=== PATIENT | male | born 1965 | race American Indian/Alaskan Native ===

== ENCOUNTER 2016-12-14 07:37 | Emergency (ER) | payer MEDICARE ==
[2016-12-14 08:15] LABS: Basophils % (Auto) 0.7 % (0.0-1.8); Eosinophils % (Auto) 4.1 % (0.0-4.3); Hematocrit 35.2 % (35.5-45.6); Hemoglobin 11.5 gm/dl (11.8-15.2); Mean Corpuscular HGB Conc 33 % (32-34); Mean Corpuscular Hemoglobin 32 pg (28-32); Mean Corpuscular Volume 97 fl (84-94); Platelet Count 303 K/mm3 (140-440); Red Blood Count 3.63 M/mm3 (3.65-5.03); Red Cell Distribution Width 15.2 % (13.2-15.2); White Blood Count 9.2 K/mm3 (4.5-11.0)
[2016-12-14 08:30] LABS: Anion Gap 19 mmol/L; BUN/Creatinine Ratio 12.85; Blood Urea Nitrogen 9 mg/dL (9-20); Calcium 9.1 mg/dL (8.4-10.2); Carbon Dioxide 22 mmol/L (22-30); Chloride 99.2 mmol/L (98-107); Glucose 341 mg/dL (75-100); Potassium 3.9 mmol/L (3.6-5.0); Sodium 136 mmol/L (137-145)
[2016-12-14 09:08] LABS: Bilirubin,Urine NEG (Negative); Blood,Urine SM (Negative); Ketones,Urine NEG (Negative); Leukocyte Esterase,Urine NEG (Negative); Mucus,Urine FEW /HPF; Nitrite,Urine NEG (Negative); Urobilinogen,Urine < 2.0 mg/dL (<2.0)
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
[2016-12-14 11:35] LABS: Alanine Aminotransferase 32 units/L (7-56); Albumin 3.4 g/dL (3.9-5); Albumin/Globulin Ratio 0.9 %; Alkaline Phosphatase 164 units/L (35-129); Bilirubin,Direct < 0.2 mg/dL (0-0.2)
[2016-12-14] MEDS ORDERED: NACL ONE (12:10)
[2016-12-14] MEDS ORDERED: ZOFRAN ONE (12:51)
[2016-12-14] MEDS ORDERED: ZOFRAN IV ONE (12:59)
--- NOTE | 2016-12-14 13:38 | Cat Scan Report ---
CT CHEST WITH CONTRAST: 12/14/16 11:58:00 CLINICAL: Shortness of breath. Elevated d-dimer. TECHNIQUE: PE protocol with volumetric acquisition and 1.25 mm scan reconstructions after the uneventful intravenous injection of 100 cc Omnipaque 350. Consent was obtained prior to the administration of contrast. FINDINGS: Less than optimal opacification of the pulmonary arteries and no pulmonary artery thrombus identified. There is considerable streak artifact from the contrast in the right heart, SVC and left brachiocephalic vein. Normal heart and aorta. Normal lungs and mediastinum. Normal thyroid, trachea and esophagus. The upper abdomen is unremarkable. The bones and soft tissues are normal. IMPRESSION: Normal study. No pulmonary embolus.
[2016-12-14 13:48] VITALS: BP 149/86
--- NOTE | 2016-12-15 09:58 | XRay Report ---
ABDOMEN, 2 views: History: Abdominal pain. There is no evidence of free air beneath the diaphragms. The gas pattern within the abdomen is unremarkable. There is no evidence of bowel dilatation, significant air-fluid levels, or pathologic calcifications. Organ shadows are unremarkable. IMPRESSION: No acute abdominal process appreciated.
--- NOTE | 2016-12-15 09:58 | XRay Report ---
ROUTINE CHEST, TWO VIEWS: HISTORY: Cough, shortness of breath. Previous cardiac surgery changes are noted. Heart size is within normal limits. Pulmonary vascularity is borderline. The lungs are clear. No evidence for pneumonia, CHF or pneumothorax. IMPRESSION: No acute cardiopulmonary process identified.
--- NOTE | 2016-12-16 07:51 | Vascular Lab Report ---
Right Lower Extremity Venous Duplex Study: Reason for Exam: Swelling of the right lower extremity. Comments on the Right: All veins visualized are freely compressible without evidence of internal echogenicity. Flow is spontaneous and phasic throughout. No evidence of acute or chronic thrombus is seen in any of the vessels visualized. Prominent lymph node and soft tissue changes consistent with edema noted Comments on the Left: A limited duplex study was done of the proximal veins of the left lower extremity. All veins visualized are freely compressible without evidence of internal echogenicity. Flow is spontaneous and phasic throughout. No evidence of acute or chronic thrombus is seen in any of the vessels visualized. Impression: No evidence of acute or chronic deep venous thrombosis in the right lower extremity.
== END 2016-12-14 13:45 | disposition home or self-care (01) ==
LOC: ED 07:37
DX: S39.011A Strain of muscle, fascia and tendon of abdomen, initial encounter (principal); R22.41 Localized swelling, mass and lump, right lower limb; R05 Cough; I10 Essential (primary) hypertension; E11.9 Type 2 diabetes mellitus without complications; E78.00 Pure hypercholesterolemia, unspecified; I25.10 Atherosclerotic heart disease of native coronary artery without angina pectoris; F12.90 Cannabis use, unspecified, uncomplicated; Z87.891 Personal history of nicotine dependence; Z88.0 Allergy status to penicillin; X58.XXXA Exposure to other specified factors, initial encounter; Y93.9 Activity, unspecified; Y99.9 Unspecified external cause status; Y92.9 Unspecified place or not applicable
CPT/HCPCS: 36415; 71020; 71275; 74020; 80048; 80074; 81001; 82962; 83690; 83880; 84484; 85025; 85379; 93005; 93010; 93971; 96374; 96375; 99285; J2405; Q9967; J1815

== ENCOUNTER 2018-08-19 23:22 | Inpatient (IN) | payer MEDICARE ==
[2018-08-19] MEDS ORDERED: ASPIRIN PO ONE (23:35)
[2018-08-19 23:56] LABS: Basophils # (Auto) 0.2 K/mm3 (0.0-0.1); Basophils % (Auto) 1.8 % (0.0-1.8); Eosinophils # (Auto) 0.5 K/mm3 (0.0-0.4); Eosinophils % (Auto) 4.9 % (0.0-4.3); Hematocrit 37.1 % (35.5-45.6); Hemoglobin 12.4 gm/dl (11.8-15.2); Lymphocytes # (Auto) 2.7 K/mm3 (1.2-5.4); Lymphocytes % (Auto) 26.8 % (13.4-35.0); Mean Corpuscular HGB Conc 33 % (32-34); Mean Corpuscular Volume 95 fl (84-94); Monocytes % (Auto) 9.6 % (0.0-7.3); Platelet Count 508 K/mm3 (140-440); Red Blood Count 3.92 M/mm3 (3.65-5.03); Red Cell Distribution Width 13.8 % (13.2-15.2)
[2018-08-20] MEDS ORDERED: ZOFRAN IV ONE (00:06)
[2018-08-20] MEDS ORDERED: MORPHINE IV ONE (00:06)
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
[2018-08-20 00:17] LABS: BUN/Creatinine Ratio 11; Blood Urea Nitrogen 9 mg/dL (9-20); Calcium 9.8 mg/dL (8.4-10.2); Hemolysis Index 7
[2018-08-20] MEDS ORDERED: HumuLIN R IV ONE (00:28)
--- NOTE | 2018-08-20 00:31 | XRay Report ---
FINAL REPORT EXAM: XR CHEST 1V AP HISTORY: chest pain TECHNIQUE: A portable upright view the chest was obtained. FINDINGS: There are sternotomy sutures. The heart size is normal. The lungs are not congested. There are no loc alized infiltrates or effusions. There is a nipple shadow overlying the left lung base. Pleural fluid is not seen. The skeletal structures are well-maintained. IMPRESSION: Previous bypass surgery changes. No acute process in the chest.
[2018-08-20] MEDS ORDERED: NITROSTAT SL PRN (01:54)
[2018-08-20] MEDS ORDERED: ZOFRAN IV PRN (01:57)
[2018-08-20] MEDS ORDERED: TYLENOL PO PRN (01:57)
[2018-08-20] MEDS: NITRO-BID 2% TP SCH ×5 (02:18→17:46)
[2018-08-20] MEDS: MORPHINE IV PRN ×3 (02:19→15:06)
[2018-08-20] MEDS ORDERED: D50W (25GM) Syringe IV PRN (03:25)
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
[2018-08-20 07:29] LABS: Creatine Kinase MB 1.3 ng/mL (0.0-4.0)
[2018-08-20] MEDS: HumuLIN R SUB-Q SCH ×4 (08:00→22:36)
[2018-08-20] MEDS ORDERED: HumuLIN R ONE ×3 (08:00→14:29)
[2018-08-20] MEDS ORDERED: LEXISCAN IV ONE ×2 (08:59→09:00)
[2018-08-20] MEDS ORDERED: ASPIRIN PO SCH (10:00)
[2018-08-20] MEDS ORDERED: ASPIRIN ONE (10:47)
[2018-08-20] MEDS ORDERED: NITRO-BID 2% TP ONE (10:47)
[2018-08-20] MEDS ORDERED: HEPARIN ONE (10:48)
[2018-08-20] MEDS ORDERED: MORPHINE ONE ×2 (10:48→14:30)
[2018-08-20] MEDS: HEPARIN SUB-Q SCH ×2 (11:05→22:36)
[2018-08-20 13:15] LABS: Creatine Kinase MB 1.5 ng/mL (0.0-4.0)
--- NOTE | 2018-08-20 16:31 | Event Note ---
Date: 08/20/18 52-year-old male patient with significant history of hypertension coronary artery disease diabetes mellitus dyslipidemia was admitted through emergency room with chest pain Patient is being appropriately treated, underwent stress test awaiting report Medical records reviewed, agree with the current management Appropriate home medications resumed
[2018-08-20] MEDS: GLUCOPHAGE PO SCH (17:45)
[2018-08-20] MEDS ORDERED: NON-FORMULARY (Metformin Hcl [Metformin Hcl] 1,000 MG) PO SCH (22:00)
--- NOTE | 2018-08-20 22:05 | Treadmill Report ---
THALLIUM STRESS TEST LEFT VENTRICLE: Left ventricle appears moderately dilated. Perfusion study demonstrates homogeneous uptake of the tracer in all segments. A small fixed basal inferior defect appears secondary to diaphragmatic attenuation artifact. Gated analysis demonstrates moderately severe left ventricular systolic dysfunction with ejection fraction calculated at 36%. CONCLUSION: Evidence of a dilated cardiomyopathy, with moderately severe left ventricular systolic dysfunction, ejection fraction 36%. The perfusion study demonstrates homogeneous uptake of the tracer, suggesting a nonischemic cardiomyopathy. Clinical correlation is recommended. [facility]# [id number] CA/NTS
[2018-08-20] MEDS: GLUCOTROL PO SCH (22:36)
[2018-08-20] MEDS: LOPRESSOR PO SCH (22:36)
[2018-08-21] MEDS: NITRO-BID 2% TP SCH ×4 (05:29→18:48)
[2018-08-21] MEDS: HumuLIN R SUB-Q SCH ×4 (08:30→21:39)
[2018-08-21] MEDS: GLUCOPHAGE PO SCH ×2 (09:00→18:00)
[2018-08-21] MEDS: MORPHINE IV PRN ×2 (09:27→18:40)
[2018-08-21] MEDS: HALFPRIN EC PO SCH (09:31)
[2018-08-21] MEDS: NORVASC PO SCH (09:32)
[2018-08-21] MEDS: LASIX IV SCH (09:36)
[2018-08-21] MEDS: HEPARIN SUB-Q SCH ×2 (09:36→21:39)
[2018-08-21] MEDS: GLUCOTROL PO SCH ×2 (09:37→21:38)
[2018-08-21] MEDS: HCTZ PO SCH (09:37)
[2018-08-21] MEDS: COZAAR PO SCH (09:42)
[2018-08-21] MEDS: LOPRESSOR PO SCH ×2 (09:51→21:38)
[2018-08-21] MEDS ORDERED: NON-FORMULARY (Losartan/Hydrochlorothiazide [Losartan-Hctz 100-25 Mg Tab] 1 TAB) PO SCH (10:00)
[2018-08-21] MEDS ORDERED: AFLURIA QUAD 2018-2019 SYRINGE IM ONE (12:00)
--- NOTE | 2018-08-21 14:24 | Progress Note ---
Assessment and Plan Assessment and plan: --Atypical chest pain; a stress test negative Continue current cardiac medications --Persistent chest pain; continue current cardiac medications Consult cardiology --History of coronary artery disease; continue current management --Systolic congestive heart failure; EF 40-45% Continue anti-failure medications --Type 2 diabetes mellitus; Accu-Chek sliding scale coverage and ADA diet and insulin as needed, patient is on oral hypoglycemics --Dyslipidemia; stable on statin DVT prophylaxis; heparin Closely monitor the patient and adjust the management as needed Follow-up cardiology evaluation and recommendations History Interval history: Patient was admitted with chest pain, underwent stress test which was negative for reversible ischemia Echocardiogram 40-45% ejection fraction Patient complains of persistent intermittent chest pain Vital signs reviewed Hospitalist Physical - Constitutional Vitals: Temp Pulse Resp BP Pulse Ox 98 F 64 18 150/76 100 08/21/18 12:27 08/21/18 12:20 08/21/18 12:20 08/21/18 12:20 08/21/18 12:20 General appearance: Present: no acute distress, well-nourished - EENT Eyes: Present: PERRL, EOM intact - Neck Neck: Present: supple, normal ROM - Respiratory Respiratory effort: normal Respiratory: bilateral: diminished, negative: rales, rhonchi, wheezing - Cardiovascular Rhythm: regular Heart Sounds: Present: S1 & S2 - Extremities Extremities: no ischemia, No edema - Abdominal General gastrointestinal: soft, non-tender, non-distended, normal bowel sounds - Integumentary Integumentary: Present: clear, warm - Psychiatric Psychiatric: appropriate mood/affect, cooperative - Neurologic Neurologic: CNII-XII intact, moves all extremities Results - Labs CBC & Chem 7: 08/19/18 23:40 08/19/18 23:40 Labs: Laboratory Last Values WBC 10.0 K/mm3 (4.5-11.0) 08/19/18 23:40 RBC 3.92 M/mm3 (3.65-5.03) 08/19/18 23:40 Hgb 12.4 gm/dl (11.8-15.2) 08/19/18 23:40 Hct 37.1 % (35.5-45.6) 08/19/18 23:40 MCV 95 fl (84-94) H 08/19/18 23:40 MCH 32 pg (28-32) 08/19/18 23:40 MCHC 33 % (32-34) 08/19/18 23:40 RDW 13.8 % (13.2-15.2) 08/19/18 23:40 Plt Count 508 K/mm3 (140-440) H 08/19/18 23:40 Lymph % (Auto) 26.8 % (13.4-35.0) 08/19/18 23:40 [place] % (Auto) 9.6 % (0.0-7.3) H 08/19/18 23:40 Eos % (Auto) 4.9 % (0.0-4.3) H 08/19/18 23:40 Baso % (Auto) 1.8 % (0.0-1.8) 08/19/18 23:40 Lymph # 2.7 K/mm3 (1.2-5.4) 08/19/18 23:40 [place] # 1.0 K/mm3 (0.0-0.8) H 08/19/18 23:40 Eos # 0.5 K/mm3 (0.0-0.4) H 08/19/18 23:40 Baso # 0.2 K/mm3 (0.0-0.1) H 08/19/18 23:40 Seg Neutrophils % 56.9 % (40.0-70.0) 08/19/18 23:40 Seg Neutrophils # 5.7 K/mm3 (1.8-7.7) 08/19/18 23:40 Sodium 137 mmol/L (137-145) 08/19/18 23:40 Potassium 3.8 mmol/L (3.6-5.0) 08/19/18 23:40 Chloride 100.1 mmol/L (98-107) 08/19/18 23:40 Carbon Dioxide 25 mmol/L (22-30) 08/19/18 23:40 Anion Gap 16 mmol/L 08/19/18 23:40 BUN 9 mg/dL (9-20) 08/19/18 23:40 Creatinine 0.8 mg/dL (0.8-1.5) 08/19/18 23:40 Estimated GFR > 60 ml/min 08/19/18 23:40 BUN/Creatinine Ratio 11 % 08/19/18 23:40 Glucose 280 mg/dL (75-100) H 08/19/18 23:40 POC Glucose 193 (70-105) H 08/21/18 11:43 Calcium 9.8 mg/dL (8.4-10.2) 08/19/18 23:40 Total Creatine Kinase 72 units/L (55-170) 08/20/18 12:18 CK-MB (CK-2) 1.5 ng/mL (0.0-4.0) 08/20/18 12:18 CK-MB (CK-2) Rel Index 2.0 (0-4) 08/20/18 12:18 Troponin T < 0.010 ng/mL (0.00-0.029) 08/20/18 12:18
[2018-08-22] MEDS: NITRO-BID 2% TP SCH ×4 (05:24→17:39)
[2018-08-22] MEDS: HumuLIN R SUB-Q SCH ×4 (08:51→21:41)
[2018-08-22] MEDS: GLUCOPHAGE PO SCH ×2 (08:56→17:13)
--- NOTE | 2018-08-22 10:31 | Consultation ---
History of Present Illness Consult date: 08/22/18 Consult reason: chest pain History of present illness: 52 year old male with past medical history of CAD s/p CABG 2011 at [place], HTN, HLP, DM presenting with chest pain that originates over the LUQ of the abdomen and radiate all the way up to the mandible and left shoulder. Pain is exertional and relieved with rest. Pain is similar to angina he experienced prior to his bypass surgery. Troponin negative, MPI here showed no ischemia. Patient did have another episode of chest pain last night. Past History Past Medical History: CAD, diabetes, hypertension, hyperlipidemia Past Surgical History: CABG Social history: no significant social history, other (former smoker) Family history: CAD, hypertension Medications and Allergies Allergies Allergy/AdvReac Type Severity Reaction Status Date / Time Penicillins Allergy Unknown Verified 12/14/16 07:46 Home Medications Medication Instructions Recorded Confirmed Last Taken Type Aspirin [Aspir-Low] 81 mg PO DAILY 08/20/18 08/20/18 08/19/18 History AtorvaSTATin [Lipitor] 40 mg PO DAILY 08/20/18 08/20/18 Unknown History Cholecalciferol (Vitamin D3) 1,000 unit PO DAILY 08/20/18 08/20/18 Unknown History [Vitamin D3] Losartan/Hydrochlorothiazide 1 tab PO DAILY 08/20/18 08/20/18 Unknown History [Losartan-Hctz 100-25 mg Tab] Metformin HCl 1,000 mg PO BID 08/20/18 08/20/18 08/19/18 History Metoprolol Tartrate 100 mg PO BID 08/20/18 08/20/18 Unknown History Omeprazole 20 mg PO BID 08/20/18 08/20/18 Unknown History amLODIPine [Norvasc] 10 mg PO DAILY 08/20/18 08/20/18 Unknown History glipiZIDE [Glipizide] 10 mg PO BID 08/20/18 08/20/18 08/19/18 History Active Meds: Active Medications Acetaminophen (Tylenol) 650 mg PO Q4H PRN PRN Reason: Headache Amlodipine Besylate (Norvasc) 10 mg PO DAILY [facility] Last Admin: 08/21/18 09:32 Dose: 10 mg Documented by: Aspirin (Halfprin Ec) 81 mg PO DAILY [facility] Last Admin: 08/21/18 09:31 Dose: 81 mg Documented by: Atorvastatin Calcium (Lipitor) 40 mg PO HS [facility] Last Admin: 08/21/18 21:40 Dose: 40 mg Documented by: Dextrose (D50w (25gm) Syringe) 50 ml IV PRN PRN PRN Reason: Hypoglycemia Furosemide (Lasix) 40 mg IV QDAY [facility] Last Admin: 08/21/18 09:36 Dose: 40 mg Documented by: Glipizide (Glucotrol) 10 mg PO BID [facility] Last Admin: 08/21/18 21:38 Dose: 10 mg Documented by: Heparin Sodium (Porcine) (Heparin) 5,000 unit SUB-Q Q12HR [facility] Last Admin: 08/21/18 21:39 Dose: 5,000 unit Documented by: Hydrochlorothiazide (Hctz) 25 mg PO QDAY [facility] Last Admin: 08/21/18 09:37 Dose: 25 mg Documented by: Insulin Human Regular (Humulin R) 0 units SUB-Q ACHS [facility]; Protocol Last Admin: 08/22/18 08:51 Dose: 1 units Documented by: Losartan Potassium (Cozaar) 100 mg PO QDAY [facility] Last Admin: 08/21/18 09:42 Dose: 100 mg Documented by: Metformin HCl (Glucophage) 1,000 mg PO BIDDIAB [facility] Last Admin: 08/22/18 08:56 Dose: 1,000 mg Documented by: Metoprolol Tartrate (Lopressor) 100 mg PO BID [facility] Last Admin: 08/21/18 21:38 Dose: 100 mg Documented by: Morphine Sulfate (Morphine) 2 mg IV Q5MIN PRN PRN Reason: Chest Pain unrelieved by NTG Last Admin: 08/21/18 18:40 Dose: 2 mg Documented by: Nitroglycerin (Nitrostat) 0.4 mg SL .Q5MIN PRN PRN Reason: Chest Pain Nitroglycerin (Nitro-Bid 2%) 1 inch TP QIDNTG [facility]; Protocol Last Admin: 08/22/18 05:24 Dose: 1 inch Documented by: Ondansetron HCl (Zofran) 4 mg IV Q8H PRN PRN Reason: Nausea And Vomiting Review of Systems All systems: negative Physical Examination Vital Signs Temp Pulse Resp BP Pulse Ox 98.3 F 68 16 137/68 100 08/19/18 23:40 08/19/18 23:40 08/19/18 23:40 08/19/18 23:40 08/19/18 23:40 General appearance: no acute distress HEENT: Positive: PERRL Neck: Positive: neck supple Cardiac: Positive: Reg Rate and Rhythm Lungs: Positive: Normal Exam Abdomen: Positive: Soft Extremities: Absent: edema Results 08/19/18 23:40 08/19/18 23:40 - EKG Interpretation EKG: sinus rhythm EKG interpretations - Telemetry EKG Rhythm: Sinus Rhythm Assessment and Plan Unstable angina [facility]G to RI and sequential SVG to RCA and PDA EF 2012 was 55% Type II DM Hyperlipidemia Systemic Hypertension MPI this admission - no ischemia, LVEF 36% Echo this admission - LVEF 40-45%, RV dysfunction Recommendations: CT abdomen and pelvis to rule out abdominal etiology of LUQ pain Coronary angio on friday for unstable angina type symptoms and decrease in LVEF from previous outpatient study
[2018-08-22] MEDS: GLUCOTROL PO SCH ×2 (10:55→21:40)
[2018-08-22] MEDS: HALFPRIN EC PO SCH (10:55)
[2018-08-22] MEDS: LASIX IV SCH (10:55)
[2018-08-22] MEDS: NORVASC PO SCH (10:55)
[2018-08-22] MEDS: HCTZ PO SCH (10:55)
[2018-08-22] MEDS: COZAAR PO SCH (10:55)
[2018-08-22] MEDS: HEPARIN SUB-Q SCH ×2 (10:56→21:40)
[2018-08-22 11:27] LABS: INR 0.89 (0.87-1.13)
--- NOTE | 2018-08-22 11:56 | Cat Scan Report ---
FINAL REPORT EXAM: CT ABDOMEN PELVIS WO CON HISTORY: LUQ abdominal pain COMPARISON: None. TECHNIQUE: Multiple contiguous axial images were obtained from the lung bases to the pubic symphysis without administration of IV contrast. Reformatted sagittal and coronal images were available for re view. FINDINGS: Lung bases: Normal. Visualized heart and mediastinum: Normal heart size. Mild coronary artery calcifications. Liver: Normal noncontrast appearance. Spleen: Normal noncontrast appearance. Pancreas: Normal noncontrast appearance. Gallbladder and Biliary Tree: No calcified gallstones. No biliary ductal dilatation. Adrenal glands: Normal. Kidneys: Normal. No renal or ureteral calcifications. No hydronephrosis. Bladder: Normal. Pelvic organs: Scattered calcifications of the prostate gland. Bowel: No focal wall thickening. No evidence of obstruction. Normal appendix without surrounding infl ammatory change. Peritoneum: No significant mesenteric adenopathy. No free air or free fluid. Vasculature: Abdominal aorta is normal in caliber without evidence of aneurysm. Scattered atheroscler otic calcifications. Bones and soft tissues: No suspicious osseous lesions. No acute fracture or dislocation. Soft tissues are normal. IMPRESSION: No acute intra-abdominal pathology. Mild coronary artery calcifications.
[2018-08-22] MEDS: MORPHINE IV PRN (17:13)
[2018-08-22] MEDS: LOPRESSOR PO SCH ×2 (17:37→21:40)
--- NOTE | 2018-08-22 18:32 | Progress Note ---
Assessment and Plan Assessment and plan: --Persistent chest pain; stress test during this admission is negative However patient has intermittent chest pain, cardiology evaluation noted and appreciated Possible heart cath on Friday --Atypical chest pain; present on admission, stress test negative Continue current cardiac medications --History of coronary artery disease s/p CABG; continue current cardiac medications , cardiology following --Systolic congestive heart failure; EF 40-45% Continue anti-failure medications --Type 2 diabetes mellitus; Accu-Chek sliding scale coverage and ADA diet and insulin as needed, patient is on oral hypoglycemics --Dyslipidemia; stable on statin DVT prophylaxis; heparin Closely monitor the patient and adjust the management as needed Follow-up cardiology evaluation and recommendations History Interval history: Patient seen and exam and medical records reviewed Patient feels better now new complaints Vital signs noted Hospitalist Physical - Constitutional Vitals: Temp Pulse Resp BP Pulse Ox 98.3 F 82 20 144/86 100 08/22/18 17:27 08/22/18 17:39 08/22/18 17:27 08/22/18 17:39 08/22/18 17:27 General appearance: Present: no acute distress, well-nourished - EENT Eyes: Present: PERRL, EOM intact - Neck Neck: Present: supple, normal ROM - Respiratory Respiratory effort: normal Respiratory: bilateral: diminished, negative: rales, rhonchi, wheezing - Cardiovascular Rhythm: regular Heart Sounds: Present: S1 & S2 - Extremities Extremities: no ischemia, No edema - Abdominal General gastrointestinal: soft, non-tender, non-distended, normal bowel sounds - Integumentary Integumentary: Present: clear, warm - Psychiatric Psychiatric: appropriate mood/affect, cooperative - Neurologic Neurologic: CNII-XII intact, moves all extremities Results - Labs CBC & Chem 7: 08/19/18 23:40 08/19/18 23:40 Labs: Laboratory Last Values WBC 10.0 K/mm3 (4.5-11.0) 08/19/18 23:40 RBC 3.92 M/mm3 (3.65-5.03) 08/19/18 23:40 Hgb 12.4 gm/dl (11.8-15.2) 08/19/18 23:40 Hct 37.1 % (35.5-45.6) 08/19/18 23:40 MCV 95 fl (84-94) H 08/19/18 23:40 MCH 32 pg (28-32) 08/19/18 23:40 MCHC 33 % (32-34) 08/19/18 23:40 RDW 13.8 % (13.2-15.2) 08/19/18 23:40 Plt Count 508 K/mm3 (140-440) H 08/19/18 23:40 Lymph % (Auto) 26.8 % (13.4-35.0) 08/19/18 23:40 [place] % (Auto) 9.6 % (0.0-7.3) H 08/19/18 23:40 Eos % (Auto) 4.9 % (0.0-4.3) H 08/19/18 23:40 Baso % (Auto) 1.8 % (0.0-1.8) 08/19/18 23:40 Lymph # 2.7 K/mm3 (1.2-5.4) 08/19/18 23:40 [place] # 1.0 K/mm3 (0.0-0.8) H 08/19/18 23:40 Eos # 0.5 K/mm3 (0.0-0.4) H 08/19/18 23:40 Baso # 0.2 K/mm3 (0.0-0.1) H 08/19/18 23:40 Seg Neutrophils % 56.9 % (40.0-70.0) 08/19/18 23:40 Seg Neutrophils # 5.7 K/mm3 (1.8-7.7) 08/19/18 23:40 PT 12.6 Sec. (12.2-14.9) 08/22/18 10:46 INR 0.89 (0.87-1.13) 08/22/18 10:46 Sodium 137 mmol/L (137-145) 08/19/18 23:40 Potassium 3.8 mmol/L (3.6-5.0) 08/19/18 23:40 Chloride 100.1 mmol/L (98-107) 08/19/18 23:40 Carbon Dioxide 25 mmol/L (22-30) 08/19/18 23:40 Anion Gap 16 mmol/L 08/19/18 23:40 BUN 9 mg/dL (9-20) 08/19/18 23:40 Creatinine 0.8 mg/dL (0.8-1.5) 08/19/18 23:40 Estimated GFR > 60 ml/min 08/19/18 23:40 BUN/Creatinine Ratio 11 % 08/19/18 23:40 Glucose 280 mg/dL (75-100) H 08/19/18 23:40 POC Glucose 195 (70-105) H 08/22/18 17:09 Calcium 9.8 mg/dL (8.4-10.2) 08/19/18 23:40 Total Creatine Kinase 72 units/L (55-170) 08/20/18 12:18 CK-MB (CK-2) 1.5 ng/mL (0.0-4.0) 08/20/18 12:18 CK-MB (CK-2) Rel Index 2.0 (0-4) 08/20/18 12:18 Troponin T < 0.010 ng/mL (0.00-0.029) 08/20/18 12:18
[2018-08-23] MEDS: NITRO-BID 2% TP SCH ×4 (05:06→17:26)
[2018-08-23] MEDS: HumuLIN R SUB-Q SCH ×4 (08:18→22:26)
[2018-08-23] MEDS: GLUCOPHAGE PO SCH ×2 (08:21→17:23)
--- NOTE | 2018-08-23 09:17 | Progress Note ---
Assessment and Plan Chest Pain CT abdomen and pelvis - [facility] Coronary artery disease s/p CABG 01/2011 at [place] to LAD, SVG to RI and sequential SVG to RCA and PDA EF 2011 was 55% Type II DM Hyperlipidemia Systemic Hypertension MPI this admission - no ischemia, LVEF 36% Echo this admission - LVEF 40-45%, RV dysfunction Recommendations: Coronary angio on friday for chest pain and decrease in LVEF from previous outpatient study Subjective Date of service: 08/23/18 Principal diagnosis: Chest Pain Interval history: No cardiac events overnight Objective Vital Signs Temp Pulse Resp BP BP Pulse Ox 08/23/18 07:56 98.8 F 73 18 135/82 97 08/23/18 05:04 67 18 141/78 98 08/23/18 01:00 58 L 08/22/18 23:50 98.5 F 64 20 147/86 98 08/22/18 22:00 19 08/22/18 20:17 98.1 F 83 20 145/84 96 08/22/18 17:39 82 144/86 08/22/18 17:27 98.3 F 82 20 144/86 100 - Physical Examination HEENT: Positive: PERRL Neck: Positive: neck supple Cardiac: Positive: Reg Rate and Rhythm Lungs: Positive: Normal Exam Abdomen: Positive: Soft Extremities: Absent: edema - Labs and Meds Coagulation 08/22/18 Range/Units 10:46 PT 12.6 (12.2-14.9) Sec. INR 0.89 (0.87-1.13)
--- NOTE | 2018-08-23 11:01 | Progress Note ---
Assessment and Plan Assessment and plan: --Persistent chest pain; stress test during this admission is negative However patient has intermittent chest pain, cardiology following Possible heart cath tomorrow --Atypical chest pain; present on admission, stress test negative Patient continues to have intermittent chest pain, heart cath tomorrow --History of coronary artery disease s/p CABG; continue current cardiac medications , cardiology following --Systolic congestive heart failure; EF 40-45% Continue anti-failure medications --Type 2 diabetes mellitus; Accu-Chek sliding scale coverage and ADA diet and insulin as needed, oral hypoglycemics --Dyslipidemia; stable on statin DVT prophylaxis; heparin Closely monitor the patient and adjust the management as needed Follow-up cardiology evaluation and recommendations History Interval history: Patient seen and examined medical records reviewed No new events reported by the nursing staff Patient feels slightly better still has very mild intermittent chest pain Alert awake oriented Vital signs reviewed Scheduled for heart cath tomorrow Hospitalist Physical - Constitutional Vitals: Temp Pulse Resp BP Pulse Ox 98.8 F 73 18 135/82 97 08/23/18 07:56 08/23/18 07:56 08/23/18 07:56 08/23/18 07:56 08/23/18 07:56 General appearance: Present: no acute distress, well-nourished - EENT Eyes: Present: PERRL, EOM intact - Neck Neck: Present: supple, normal ROM - Respiratory Respiratory effort: normal Respiratory: bilateral: diminished, negative: rales, rhonchi, wheezing - Cardiovascular Rhythm: regular Heart Sounds: Present: S1 & S2 - Extremities Extremities: no ischemia, No edema - Abdominal General gastrointestinal: soft, non-tender, non-distended, normal bowel sounds - Integumentary Integumentary: Present: clear, warm - Psychiatric Psychiatric: appropriate mood/affect, cooperative - Neurologic Neurologic: CNII-XII intact, moves all extremities Results - Labs CBC & Chem 7: 08/19/18 23:40 08/19/18 23:40 Labs: Laboratory Last Values WBC 10.0 K/mm3 (4.5-11.0) 08/19/18 23:40 RBC 3.92 M/mm3 (3.65-5.03) 08/19/18 23:40 Hgb 12.4 gm/dl (11.8-15.2) 08/19/18 23:40 Hct 37.1 % (35.5-45.6) 08/19/18 23:40 MCV 95 fl (84-94) H 08/19/18 23:40 MCH 32 pg (28-32) 08/19/18 23:40 MCHC 33 % (32-34) 08/19/18 23:40 RDW 13.8 % (13.2-15.2) 08/19/18 23:40 Plt Count 508 K/mm3 (140-440) H 08/19/18 23:40 Lymph % (Auto) 26.8 % (13.4-35.0) 08/19/18 23:40 [place] % (Auto) 9.6 % (0.0-7.3) H 08/19/18 23:40 Eos % (Auto) 4.9 % (0.0-4.3) H 08/19/18 23:40 Baso % (Auto) 1.8 % (0.0-1.8) 08/19/18 23:40 Lymph # 2.7 K/mm3 (1.2-5.4) 08/19/18 23:40 [place] # 1.0 K/mm3 (0.0-0.8) H 08/19/18 23:40 Eos # 0.5 K/mm3 (0.0-0.4) H 08/19/18 23:40 Baso # 0.2 K/mm3 (0.0-0.1) H 08/19/18 23:40 Seg Neutrophils % 56.9 % (40.0-70.0) 08/19/18 23:40 Seg Neutrophils # 5.7 K/mm3 (1.8-7.7) 08/19/18 23:40 PT 12.6 Sec. (12.2-14.9) 08/22/18 10:46 INR 0.89 (0.87-1.13) 08/22/18 10:46 Sodium 137 mmol/L (137-145) 08/19/18 23:40 Potassium 3.8 mmol/L (3.6-5.0) 08/19/18 23:40 Chloride 100.1 mmol/L (98-107) 08/19/18 23:40 Carbon Dioxide 25 mmol/L (22-30) 08/19/18 23:40 Anion Gap 16 mmol/L 08/19/18 23:40 BUN 9 mg/dL (9-20) 08/19/18 23:40 Creatinine 0.8 mg/dL (0.8-1.5) 08/19/18 23:40 Estimated GFR > 60 ml/min 08/19/18 23:40 BUN/Creatinine Ratio 11 % 08/19/18 23:40 Glucose 280 mg/dL (75-100) H 08/19/18 23:40 POC Glucose 180 (70-105) H 08/23/18 06:18 Calcium 9.8 mg/dL (8.4-10.2) 08/19/18 23:40 Total Creatine Kinase 72 units/L (55-170) 08/20/18 12:18 CK-MB (CK-2) 1.5 ng/mL (0.0-4.0) 08/20/18 12:18 CK-MB (CK-2) Rel Index 2.0 (0-4) 08/20/18 12:18 Troponin T < 0.010 ng/mL (0.00-0.029) 08/20/18 12:18
[2018-08-23] MEDS: HCTZ PO SCH (11:17)
[2018-08-23] MEDS: LOPRESSOR PO SCH ×2 (11:18→22:27)
[2018-08-23] MEDS: HALFPRIN EC PO SCH (11:18)
[2018-08-23] MEDS: GLUCOTROL PO SCH ×2 (11:18→22:25)
[2018-08-23] MEDS: COZAAR PO SCH (11:24)
[2018-08-23] MEDS: LASIX IV SCH (11:24)
[2018-08-23] MEDS: HEPARIN SUB-Q SCH ×2 (11:25→22:26)
[2018-08-23] MEDS: NORVASC PO SCH (11:26)
[2018-08-23] MEDS: MORPHINE IV PRN (15:54)
[2018-08-24] MEDS: NITRO-BID 2% TP SCH ×3 (05:30→14:27)
[2018-08-24 06:07] LABS: Basophils # (Auto) 0.1 K/mm3 (0.0-0.1); Basophils % (Auto) 0.8 % (0.0-1.8); Eosinophils # (Auto) 0.4 K/mm3 (0.0-0.4); Eosinophils % (Auto) 5.2 % (0.0-4.3); Hematocrit 41.3 % (35.5-45.6); Hemoglobin 13.4 gm/dl (11.8-15.2); Lymphocytes # (Auto) 2.8 K/mm3 (1.2-5.4); Lymphocytes % (Auto) 35.7 % (13.4-35.0); Mean Corpuscular HGB Conc 33 % (32-34); Mean Corpuscular Volume 94 fl (84-94); Monocytes # (Auto) 1.2 K/mm3 (0.0-0.8); Monocytes % (Auto) 15.1 % (0.0-7.3); Platelet Count 474 K/mm3 (140-440); Red Blood Count 4.37 M/mm3 (3.65-5.03); Red Cell Distribution Width 13.9 % (13.2-15.2)
[2018-08-24 06:30] LABS: INR 0.92 (0.87-1.13)
[2018-08-24 06:31] LABS: BUN/Creatinine Ratio 17; Blood Urea Nitrogen 15 mg/dL (9-20); Calcium 10.1 mg/dL (8.4-10.2); Hemolysis Index 3
[2018-08-24] MEDS: HumuLIN R SUB-Q SCH ×3 (07:38→22:35)
[2018-08-24] MEDS ORDERED: NACL 0.9% 500 ML 500 ML IV SCH ×2 (10:00→18:00)
[2018-08-24] MEDS ORDERED: HEPARIN/NS 5000 UNIT/500ML(CATH LAB) 1,000 ML IR ONE (10:11)
[2018-08-24] MEDS ORDERED: HEPARIN 10,000 UNITS/10 ML ONE (10:11)
[2018-08-24] MEDS: LOPRESSOR PO SCH ×2 (10:25→22:28)
[2018-08-24] MEDS: GLUCOTROL PO SCH ×2 (10:25→22:17)
[2018-08-24] MEDS: HALFPRIN EC PO SCH (10:25)
[2018-08-24] MEDS: NORVASC PO SCH (10:25)
[2018-08-24] MEDS: HEPARIN SUB-Q SCH ×2 (10:25→22:16)
[2018-08-24] MEDS ORDERED: SUBLIMAZE ONE (10:25)
[2018-08-24] MEDS: HCTZ PO SCH (10:25)
[2018-08-24] MEDS ORDERED: VERSED ONE (10:25)
[2018-08-24] MEDS: LASIX IV SCH (10:25)
[2018-08-24] MEDS: COZAAR PO SCH (10:25)
[2018-08-24] MEDS: XYLOCAINE 2% INFILTRATI ONE ×2 (10:27→10:28)
[2018-08-24] MEDS: HEPARIN 10,000 UNITS/10 ML ONE ×2 (10:45→10:53)
[2018-08-24] MEDS ORDERED: NITROGLYCERIN SYRINGE 3 ML ONE (10:48)
[2018-08-24] MEDS ORDERED: AGGRASTAT DRIP (12.5 MG/250 ML) 12,500 MCG/250 ML BAG IV ONE (11:16)
--- NOTE | 2018-08-24 11:16 | Event Note ---
Date: 08/24/18 Cardiac catheterization revealed multivessel coronary artery disease, with patent left internal mammary artery graft to the LAD, patent saphenous vein graft to a ramus intermedius, patent saphenous vein graft to the distal right coronary artery. We performed ad hoc coronary angioplasty and stenting of a greater than 99% stenosis off a fairly small caliber mid to distal circumflex. This appeared to be a de tom stenosis in the vessel that was not previously bypassed. There was moderate left ventricular systolic dysfunction with ejection fraction estimated at 35-40%.
[2018-08-24] MEDS ORDERED: BRILINTA ONE (11:25)
[2018-08-24] MEDS ORDERED: ALUM-MAG HYDROX-SIMETH 200-200-20MG/5ML ONE (11:26)
--- NOTE | 2018-08-24 11:27 | Progress Note ---
Assessment and Plan Assessment and plan: --Persistent chest pain; stress test during this admission is negative However patient has intermittent chest pain, cardiology following s/p heart cath today Coronary angioplasty, stenting of greater than 99% stenosis of a fairly small caliber mid to distal circumflex, LV function 35-40% --Atypical chest pain; present on admission, stress test negative --History of coronary artery disease s/p CABG; continue current cardiac medications , cardiology following --Systolic congestive heart failure; EF 40-45% Continue anti-failure medications --Type 2 diabetes mellitus; Accu-Chek sliding scale coverage and ADA diet and insulin as needed, oral hypoglycemics --Dyslipidemia; stable on statin DVT prophylaxis; heparin Closely monitor the patient and adjust the management as needed Possible discharge home tomorrow if stable History Interval history: Patient seen and examined medical records reviewed Underwent heart cath today, findings noted No new complaints Vital signs stable Hospitalist Physical - Constitutional Vitals: Temp Pulse Resp BP Pulse Ox 98.3 F 65 16 118/81 98 08/24/18 07:33 08/24/18 08:28 08/24/18 08:28 08/24/18 07:33 08/24/18 08:28 General appearance: Present: no acute distress, well-nourished - EENT Eyes: Present: PERRL, EOM intact - Neck Neck: Present: supple, normal ROM - Respiratory Respiratory effort: normal Respiratory: bilateral: diminished, negative: rales, rhonchi, wheezing - Cardiovascular Rhythm: regular Heart Sounds: Present: S1 & S2 - Extremities Extremities: no ischemia, No edema - Abdominal General gastrointestinal: soft, non-tender, non-distended, normal bowel sounds - Integumentary Integumentary: Present: clear, warm - Psychiatric Psychiatric: appropriate mood/affect, cooperative - Neurologic Neurologic: moves all extremities Results - Labs CBC & Chem 7: 08/24/18 04:43 08/24/18 04:43 Labs: Laboratory Last Values WBC 7.8 K/mm3 (4.5-11.0) 08/24/18 04:43 RBC 4.37 M/mm3 (3.65-5.03) 08/24/18 04:43 Hgb 13.4 gm/dl (11.8-15.2) 08/24/18 04:43 Hct 41.3 % (35.5-45.6) 08/24/18 04:43 MCV 94 fl (84-94) 08/24/18 04:43 MCH 31 pg (28-32) 08/24/18 04:43 MCHC 33 % (32-34) 08/24/18 04:43 RDW 13.9 % (13.2-15.2) 08/24/18 04:43 Plt Count 474 K/mm3 (140-440) H 08/24/18 04:43 Lymph % (Auto) 35.7 % (13.4-35.0) H 08/24/18 04:43 [place] % (Auto) 15.1 % (0.0-7.3) H 08/24/18 04:43 Eos % (Auto) 5.2 % (0.0-4.3) H 08/24/18 04:43 Baso % (Auto) 0.8 % (0.0-1.8) 08/24/18 04:43 Lymph # 2.8 K/mm3 (1.2-5.4) 08/24/18 04:43 [place] # 1.2 K/mm3 (0.0-0.8) H 08/24/18 04:43 Eos # 0.4 K/mm3 (0.0-0.4) 08/24/18 04:43 Baso # 0.1 K/mm3 (0.0-0.1) 08/24/18 04:43 Seg Neutrophils % 43.2 % (40.0-70.0) 08/24/18 04:43 Seg Neutrophils # 3.4 K/mm3 (1.8-7.7) 08/24/18 04:43 PT 12.9 Sec. (12.2-14.9) 08/24/18 04:47 INR 0.92 (0.87-1.13) 08/24/18 04:47 APTT 22.6 Sec. (24.2-36.6) L 08/24/18 04:47 Sodium 136 mmol/L (137-145) L 08/24/18 04:43 Potassium 3.8 mmol/L (3.6-5.0) 08/24/18 04:43 Chloride 95.3 mmol/L (98-107) L 08/24/18 04:43 Carbon Dioxide 27 mmol/L (22-30) 08/24/18 04:43 Anion Gap 18 mmol/L 08/24/18 04:43 BUN 15 mg/dL (9-20) 08/24/18 04:43 Creatinine 0.9 mg/dL (0.8-1.5) 08/24/18 04:43 Estimated GFR > 60 ml/min 08/24/18 04:43 BUN/Creatinine Ratio 17 % 08/24/18 04:43 Glucose 175 mg/dL (75-100) H 08/24/18 04:43 POC Glucose 177 (70-105) H 08/24/18 06:29 Calcium 10.1 mg/dL (8.4-10.2) 08/24/18 04:43 Total Creatine Kinase 72 units/L (55-170) 08/20/18 12:18 CK-MB (CK-2) 1.5 ng/mL (0.0-4.0) 08/20/18 12:18 CK-MB (CK-2) Rel Index 2.0 (0-4) 08/20/18 12:18 Troponin T < 0.010 ng/mL (0.00-0.029) 08/20/18 12:18
[2018-08-24] MEDS ORDERED: NACL 0.9% 1000 ML 1,000 ML IV SCH (12:00)
[2018-08-24] MEDS ORDERED: AGGRASTAT DRIP (12.5 MG/250 ML) 12,500 MCG/250 ML BAG IV SCH (13:00)
--- NOTE | 2018-08-24 20:14 | Cardiac Catherization Report ---
REASON FOR PROCEDURE: The patient is a 52-year-old man with multivessel coronary artery disease, status post 4-vessel coronary artery bypass surgery, who presents with unstable angina, cardiac catheterization was recommended. PROCEDURES: 1. Left heart catheterization. 2. Selective left and right coronary angiography. 3. Angiography of the left internal mammary artery graft. 4. Angiography of the saphenous vein grafts. 5. Left ventricular angiography. 6. Coronary angioplasty and stenting of the circumflex artery. DESCRIPTION OF PROCEDURE: The patient was prepped and draped in a sterile fashion after informed consent. The right femoral artery was entered using a Seldinger technique followed by placement of a 6-Irish sheath. Selective left and right coronary angiography was performed using #4 right and left Dung catheters. The right Dung was used for saphenous vein graft angiography. The right Dung catheter was also used for left ventricular angiography. We then exchanged for the left internal mammary artery graft catheter, which was used for left internal mammary artery graft angiography. The angiograms were reviewed. CORONARY ANGIOGRAPHY: The left main coronary artery contained mild irregularities. The left anterior descending artery was completely occluded in its proximal to mid segment, within a previously stented segment. The left internal mammary artery graft to the LAD was patent with good anastomosis and good distal runoff. A large ramus intermedius artery contained severe diffuse disease in its proximal and mid segments, with greater than 90% stenosis. The saphenous vein graft to the ramus intermedius artery was patent and was anastomosed distally to a sub-branch of the ramus artery. There was good distal runoff. The retrograde perfusion of the larger inferior sub-branch of the ramus appeared to be possibly compromised by an ostial stenosis of the superior sub-branch located just before the graft insertion. The circumflex artery was not previously bypassed. This vessel contained a long, greater than 99% stenosis of its mid to distal segment, associated with delayed flow down a medium-sized distal obtuse marginal. The right coronary artery was dominant and chronically totally occluded in its mid segment. The saphenous vein graft to the distal right coronary artery was patent with sequential anastomosis to the posterior descending branch and posterolateral branch. There was good distal runoff into a very small caliber distal right coronary system. Left ventricle appeared mildly dilated. There was [id number] left ventricular systolic dysfunction, estimated ejection fraction 40%. CORONARY ANGIOPLASTY: After review of the angiograms, we recommended ad hoc coronary intervention to the [place] circumflex artery. We selected a #3.5 XB guiding catheter and advanced to the left coronary ostium. A 0.014-inch Pump House Engineer 50 guidewire was introduced into the vessel and successfully across the lesional segment. Following wire placement, we used a 2.25 balloon catheter to predilate the lesion and reestablished ISMAEL 3 flow. Following angioplasty, serial, 2.25-2.5 mm drug-eluting stents were then deployed with an excellent angiographic result, 0 residual stenosis, and roman catholic of ISMAEL 3 flow. Procedure was well tolerated by the patient and there were no complications. CONCLUSION: 1. Multivessel coronary artery disease. 2. Patent left internal mammary artery graft to the LAD. 3. Patent saphenous vein graft to the ramus intermedius artery, with graft anastomosis to a distal sub-branch, resulting in potentially poor retrograde perfusion into a larger inferior sub-branch. 4. Patent saphenous vein graft to 2 sequential targets of the distal right coronary artery. 5. Severe de tom disease of the previously bypassed circumflex artery. 6. [id number]-[id number] left ventricular systolic dysfunction, ejection fraction 40%. 7. Successful ad hoc angioplasty and stenting of the circumflex, excellent angiographic result and roman catholic of ISMAEL 3 flow with serial 2.25-2.5 mm drug-eluting stents. In consideration of more optimal revascularization, the patient may benefit from second vessel coronary intervention to the [place] ramus intermedius artery, with the potential benefit of improving distal perfusion to the larger, inferior sub-branch of this vessel. [facility]# [id number] SELENA/OPAL
[2018-08-24] MEDS: MORPHINE IV PRN (22:15)
[2018-08-24] MEDS: BRILINTA PO SCH (22:17)
[2018-08-25] MEDS: MORPHINE IV PRN ×3 (03:06→21:40)
[2018-08-25 06:13] LABS: Basophils # (Auto) 0.1 K/mm3 (0.0-0.1); Basophils % (Auto) 0.9 % (0.0-1.8); Eosinophils # (Auto) 0.4 K/mm3 (0.0-0.4); Eosinophils % (Auto) 5.7 % (0.0-4.3); Hematocrit 37.4 % (35.5-45.6); Hemoglobin 12.8 gm/dl (11.8-15.2); Lymphocytes # (Auto) 1.6 K/mm3 (1.2-5.4); Lymphocytes % (Auto) 21.7 % (13.4-35.0); Mean Corpuscular HGB Conc 34 % (32-34); Mean Corpuscular Volume 94 fl (84-94); Monocytes # (Auto) 0.9 K/mm3 (0.0-0.8); Platelet Count 418 K/mm3 (140-440); Red Blood Count 3.96 M/mm3 (3.65-5.03); Red Cell Distribution Width 13.9 % (13.2-15.2)
[2018-08-25 06:19] LABS: INR 0.99 (0.87-1.13)
[2018-08-25] MEDS: NITRO-BID 2% TP SCH ×4 (06:24→17:00)
[2018-08-25 06:31] LABS: BUN/Creatinine Ratio 20; Blood Urea Nitrogen 14 mg/dL (9-20); Calcium 9.8 mg/dL (8.4-10.2); Hemolysis Index 0
--- NOTE | 2018-08-25 07:58 | XRay Report ---
AP CHEST :08/25/18 07:35 CLINICAL: Status post PCI. COMPARISON:08/20/18 FINDINGS: Normal heart and pulmonary vasculature. The lungs are normally expanded and clear. No pneumothorax. No tubes or lines. Median sternotomy wires. IMPRESSION: No acute cardiopulmonary process. No change since the previous exam.
[2018-08-25] MEDS: HumuLIN R SUB-Q SCH ×4 (08:27→21:43)
[2018-08-25] MEDS ORDERED: HEPARIN/NS 5000 UNIT/500ML(CATH LAB) 1,000 ML IR ONE (09:34)
[2018-08-25] MEDS ORDERED: XYLOCAINE 1% 20 mL ONE (09:34)
[2018-08-25] MEDS ORDERED: HEPARIN 10,000 UNITS/10 ML ONE (09:35)
[2018-08-25] MEDS ORDERED: NACL 0.9% 500 ML 500 ML ONE (09:58)
[2018-08-25] MEDS: HEPARIN SUB-Q SCH ×2 (10:00→21:41)
[2018-08-25] MEDS: HALFPRIN EC PO SCH (10:00)
[2018-08-25] MEDS: GLUCOTROL PO SCH ×2 (10:00→21:42)
[2018-08-25] MEDS ORDERED: VERSED ONE (10:06)
[2018-08-25] MEDS ORDERED: SUBLIMAZE ONE (10:06)
[2018-08-25] MEDS ORDERED: NITROGLYCERIN SYRINGE 3 ML ONE ×2 (10:11→10:56)
[2018-08-25] MEDS: HEPARIN 10,000 UNITS/10 ML ONE (11:00)
[2018-08-25] MEDS ORDERED: BRILINTA ONE (11:10)
[2018-08-25] MEDS ORDERED: ALUM-MAG HYDROX-SIMETH 200-200-20MG/5ML ONE (11:10)
--- NOTE | 2018-08-25 11:35 | Event Note ---
Date: 08/25/18 Status post successful 2nd vessel PCI of the Ramus intermedius, intended for optimal perfusion of its larger, inferior subbranch. Excellent result, ISMAEL 3 flow, no complications. OK for cardiac discharge tomorrow after overnight post PCI observation.
[2018-08-25] MEDS ORDERED: NACL 0.9% 1000 ML 1,000 ML IV SCH (12:00)
--- NOTE | 2018-08-25 12:02 | Cardiac Catherization Report ---
CORONARY ANGIOPLASTY REPORT REASON FOR PROCEDURE: The patient is a 52-year-old man with complex multivessel coronary disease and previous coronary bypass. Yesterday, he underwent coronary angioplasty and stenting of 99% stenosis of the mid to distal segment of the [place] circumflex artery. [place] circumflex had not previously been bypassed. We also note severe diffuse disease of the large bifurcating ramus intermedius artery. There was a previous patent saphenous vein graft with distal anastomosis to the smaller, superior sub-branch of the ramus intermedius, with resultant, suboptimal retrograde perfusion into the larger inferior sub-branch of this vessel. He presents today, for second vessel staged coronary intervention to the proximal and mid segments of the ramus intermedius, intended to more optimally perfuse the larger inferior sub-branch. PROCEDURE: 1. Coronary angioplasty and stenting of the ramus intermedius artery. 2. Sedation time start 10:30, end 11:10. The patient was prepped and draped in a sterile fashion after informed consent. The right femoral artery was entered using the Seldinger technique followed by placement of a 6-[place] sheath. A #3.5 XB guiding catheter was advanced to the left coronary ostium. Preintervention angiograms were taken. A 0.014 inch Social Service Worker 50 guidewire was introduced, into the ramus across the lesional segment and the wire was selectively placed into the inferior sub-branch of the ramus. We then performed predilatation balloon angioplasty using a 2.5 mm balloon catheter. Following predilatation, serial, a 2.75 mm drug-eluting stents were then deployed through the proximal and mid segments of the ramus intermedius. Following stenting, there was an excellent angiographic result, 0 residual stenosis and ISMAEL 3 flow was restored to a large ramus intermedius and providing optimal perfusion into the large inferior sub-branch. The procedure was well tolerated by the patient and there were no complications. The catheters were removed, sheath removed, and hemostasis achieved using an Angio-Seal device. CONCLUSION: Successful second vessel angioplasty and stenting of the ramus intermedius artery, excellent angiographic result and optimal perfusion of the distal sub-branch following deployment of serial 2.75 mm drug-eluting stents. JOB# [id number] SELENA/NTS
[2018-08-25] MEDS: LASIX IV SCH (16:57)
[2018-08-25] MEDS: HCTZ PO SCH (17:01)
[2018-08-25] MEDS: LOPRESSOR PO SCH ×2 (17:01→21:42)
[2018-08-25] MEDS: BRILINTA PO SCH ×2 (17:01→21:41)
[2018-08-25] MEDS: NORVASC PO SCH (17:01)
[2018-08-25] MEDS: COZAAR PO SCH (17:01)
--- NOTE | 2018-08-25 19:24 | Progress Note ---
Assessment and Plan Assessment and plan: s/p--Second vessel PCI ramus intermedius done today --Persistent chest pain; stress test during this admission is negative However patient has intermittent chest pain, cardiology following s/p heart cath , first vessel PTCA Coronary angioplasty, stenting of greater than 99% stenosis of a fairly small caliber mid to distal circumflex, LV function 35-40% --Atypical chest pain; present on admission, stress test negative --History of coronary artery disease s/p CABG; continue current cardiac medications , cardiology following --Systolic congestive heart failure; EF 40-45% Continue anti-failure medications --Type 2 diabetes mellitus; Accu-Chek sliding scale coverage and ADA diet and insulin as needed, oral hypoglycemics --Dyslipidemia; stable on statin DVT prophylaxis; heparin Closely monitor the patient and adjust the management as needed Possible discharge home tomorrow if stable History Interval history: Patient was taken for cath procedure today Patient feels better no new complaints Vital signs reviewed Hospitalist Physical - Constitutional Vitals: Temp Pulse Resp BP Pulse Ox 98.4 F 67 15 137/95 100 08/25/18 11:45 08/25/18 13:15 08/25/18 13:15 08/25/18 13:15 08/25/18 13:15 General appearance: Present: no acute distress, well-nourished - EENT Eyes: Present: PERRL, EOM intact - Neck Neck: Present: supple, normal ROM - Respiratory Respiratory effort: normal Respiratory: bilateral: diminished, negative: rales, rhonchi, wheezing - Cardiovascular Rhythm: regular Heart Sounds: Present: S1 & S2 - Extremities Extremities: no ischemia, No edema - Abdominal General gastrointestinal: soft, non-tender, non-distended, normal bowel sounds - Integumentary Integumentary: Present: clear, warm - Psychiatric Psychiatric: appropriate mood/affect, cooperative - Neurologic Neurologic: CNII-XII intact, moves all extremities Results - Labs CBC & Chem 7: 08/25/18 04:53 08/25/18 04:53 Labs: Laboratory Last Values WBC 7.5 K/mm3 (4.5-11.0) 08/25/18 04:53 RBC 3.96 M/mm3 (3.65-5.03) 08/25/18 04:53 Hgb 12.8 gm/dl (11.8-15.2) 08/25/18 04:53 Hct 37.4 % (35.5-45.6) 08/25/18 04:53 MCV 94 fl (84-94) 08/25/18 04:53 MCH 32 pg (28-32) 08/25/18 04:53 MCHC 34 % (32-34) 08/25/18 04:53 RDW 13.9 % (13.2-15.2) 08/25/18 04:53 Plt Count 418 K/mm3 (140-440) 08/25/18 04:53 Lymph % (Auto) 21.7 % (13.4-35.0) 08/25/18 04:53 [place] % (Auto) 12.0 % (0.0-7.3) H 08/25/18 04:53 Eos % (Auto) 5.7 % (0.0-4.3) H 08/25/18 04:53 Baso % (Auto) 0.9 % (0.0-1.8) 08/25/18 04:53 Lymph # 1.6 K/mm3 (1.2-5.4) 08/25/18 04:53 [place] # 0.9 K/mm3 (0.0-0.8) H 08/25/18 04:53 Eos # 0.4 K/mm3 (0.0-0.4) 08/25/18 04:53 Baso # 0.1 K/mm3 (0.0-0.1) 08/25/18 04:53 Seg Neutrophils % 59.7 % (40.0-70.0) 08/25/18 04:53 Seg Neutrophils # 4.5 K/mm3 (1.8-7.7) 08/25/18 04:53 PT 13.7 Sec. (12.2-14.9) 08/25/18 05:24 INR 0.99 (0.87-1.13) 08/25/18 05:24 APTT 30.4 Sec. (24.2-36.6) 08/25/18 05:24 Activated Clotting Time 268 (74-137) H 08/24/18 11:11 Sodium 134 mmol/L (137-145) L 08/25/18 04:53 Potassium 3.9 mmol/L (3.6-5.0) 08/25/18 04:53 Chloride 95.5 mmol/L (98-107) L 08/25/18 04:53 Carbon Dioxide 27 mmol/L (22-30) 08/25/18 04:53 Anion Gap 15 mmol/L 08/25/18 04:53 BUN 14 mg/dL (9-20) 08/25/18 04:53 Creatinine 0.7 mg/dL (0.8-1.5) L 08/25/18 04:53 Estimated GFR > 60 ml/min 08/25/18 04:53 BUN/Creatinine Ratio 20 % 08/25/18 04:53 Glucose 176 mg/dL (75-100) H 08/25/18 04:53 POC Glucose 234 (70-105) H 08/25/18 15:57 Calcium 9.8 mg/dL (8.4-10.2) 08/25/18 04:53 Total Creatine Kinase 59 units/L (55-170) 08/25/18 04:53 CK-MB (CK-2) 2.0 ng/mL (0.0-4.0) 08/25/18 04:53 CK-MB (CK-2) Rel Index 3.3 (0-4) 08/25/18 04:53 Troponin T 0.025 ng/mL (0.00-0.029) 08/25/18 04:53 Blood Type O POSITIVE 08/25/18 05:25 Antibody Screen Negative 08/25/18 05:25
[2018-08-26 05:28] LABS: Basophils # (Auto) 0.1 K/mm3 (0.0-0.1); Basophils % (Auto) 1.2 % (0.0-1.8); Eosinophils # (Auto) 0.6 K/mm3 (0.0-0.4); Eosinophils % (Auto) 7.5 % (0.0-4.3); Hematocrit 39.4 % (35.5-45.6); Hemoglobin 13.3 gm/dl (11.8-15.2); Lymphocytes # (Auto) 1.7 K/mm3 (1.2-5.4); Lymphocytes % (Auto) 23.3 % (13.4-35.0); Mean Corpuscular HGB Conc 34 % (32-34); Mean Corpuscular Volume 95 fl (84-94); Monocytes # (Auto) 1.2 K/mm3 (0.0-0.8); Monocytes % (Auto) 15.9 % (0.0-7.3); Platelet Count 436 K/mm3 (140-440); Red Blood Count 4.14 M/mm3 (3.65-5.03); Red Cell Distribution Width 13.6 % (13.2-15.2)
[2018-08-26] MEDS: MORPHINE IV PRN ×2 (05:43→10:41)
[2018-08-26] MEDS: NITRO-BID 2% TP SCH ×2 (05:44→10:39)
[2018-08-26 05:47] LABS: Creatine Kinase MB 1.4 ng/mL (0.0-4.0)
[2018-08-26 05:48] LABS: BUN/Creatinine Ratio 15; Blood Urea Nitrogen 12 mg/dL (9-20); Calcium 9.7 mg/dL (8.4-10.2); Hemolysis Index 3
[2018-08-26] MEDS: HumuLIN R SUB-Q SCH (08:28)
--- NOTE | 2018-08-26 09:02 | XRay Report ---
PORTABLE CHEST INDICATION: Post PCI. COMPARISON: Yesterday. FINDINGS: Portable, frontal chest radiographs, 2 images, 7:47 AM, 08/26/2018 again demonstrates normal cardiomediastinal silhouette and post CABG changes. Clear lungs without pleural effusions or CHF. Subtle bilateral mid to lower lung peripheral 1.1 cm nodular densities presumably represent nipple shadows. Subtle aortic/coronary atherosclerotic calcification/possible stents. EKG leads. Various bony degenerative changes. CONCLUSION: No acute significant chest process, as described. Thank you for the opportunity to participate in this patient's care.
--- NOTE | 2018-08-26 09:42 | Progress Note ---
Assessment and Plan Chest Pain Cardiac cath findings: 1. multivessel coronary artery disease 2. patent left internal mammary artery graft to the LAD 3. patent saphenous vein graft to a ramus intermedius 4. patent saphenous vein graft to the distal right coronary artery 5. ejection fraction 35-40% s/p PCI of small caliber mid to distal circumflex stenosis that was not previously bypassed. s/p 2nd vessel PCI of the Ramus intermedius, intended for optimal perfusion of its larger, inferior subbranch Coronary artery disease s/p CABG 01/2011 at [place] [facility] to LAD, SVG to RI and sequential SVG to RCA and PDA EF 2011 was 55% Type II DM Hyperlipidemia Systemic Hypertension Continue medical therapy for coronary artery disease including Brilinta and aspirin without interruption. OK for cardiac discharge home. Patient will f[facility]u with [facility]. as scheduled . Subjective Date of service: 08/26/18 Principal diagnosis: Chest Pain Interval history: Patient denies chest pain, reports he is feeling better. Objective Vital Signs Temp Pulse Resp Resp BP Pulse Ox 08/26/18 05:44 70 133/89 08/26/18 05:43 18 08/26/18 04:26 98.1 F 70 16 133/89 97 08/25/18 23:17 98.2 F 76 16 123/74 99 08/25/18 22:00 68 20 08/25/18 21:42 78 151/82 08/25/18 21:40 20 08/25/18 19:38 99.3 F 77 12 151/82 98 08/25/18 15:50 98.6 F 71 20 144/79 98 08/25/18 13:15 67 15 137/95 100 08/25/18 13:00 65 14 147/72 100 08/25/18 12:30 70 13 143/83 100 08/25/18 12:15 70 12 134/79 100 08/25/18 12:00 62 15 139/76 100 08/25/18 11:45 98.4 F 63 11 L 138/83 100 - Physical Examination General: No Apparent Distress HEENT: Positive: PERRL Neck: Positive: neck supple Cardiac: Positive: Reg Rate and Rhythm Lungs: Positive: Decreased Breath Sounds Neuro: Positive: Grossly Intact Abdomen: Positive: Soft Incision: Cardiac Cath Site (right groin) Extremities: Absent: edema - Labs and Meds Cardiac Enzymes 08/26/18 Range/Units 04:52 CK-MB (CK-2) 1.4 (0.0-4.0) ng/mL CBC 08/26/18 Range/Units 04:52 WBC 7.5 (4.5-11.0) K/mm3 RBC 4.14 (3.65-5.03) M/mm3 Hgb 13.3 (11.8-15.2) gm/dl Hct 39.4 (35.5-45.6) % Plt Count 436 (140-440) K/mm3 Lymph # 1.7 (1.2-5.4) K/mm3 [place] # 1.2 H (0.0-0.8) K/mm3 Eos # 0.6 H (0.0-0.4) K/mm3 Baso # 0.1 (0.0-0.1) K/mm3 Comprehensive Metabolic Panel 08/26/18 Range/Units 04:52 Sodium 134 L (137-145) mmol/L Potassium 3.8 (3.6-5.0) mmol/L Chloride 94.4 L (98-107) mmol/L Carbon Dioxide 26 (22-30) mmol/L BUN 12 (9-20) mg/dL Creatinine 0.8 (0.8-1.5) mg/dL Glucose 226 H (75-100) mg/dL Calcium 9.7 (8.4-10.2) mg/dL
[2018-08-26] MEDS: GLUCOTROL PO SCH (10:41)
[2018-08-26] MEDS: HALFPRIN EC PO SCH (10:42)
[2018-08-26] MEDS: COZAAR PO SCH (10:42)
[2018-08-26] MEDS: LASIX IV SCH (10:42)
[2018-08-26] MEDS: NORVASC PO SCH (10:43)
[2018-08-26] MEDS: LOPRESSOR PO SCH (10:43)
[2018-08-26] MEDS: HEPARIN SUB-Q SCH (10:43)
[2018-08-26] MEDS: HCTZ PO SCH (10:43)
[2018-08-26] MEDS: BRILINTA PO SCH (10:44)
[2018-08-26 10:56] VITALS: BP 129/71
--- NOTE | 2018-08-26 15:25 | Discharge Summary ---
Providers - Providers Date of Admission: 08/20/18 01:45 Date of discharge: 08/26/18 Attending physician: ARGELIA CRUZ 08/21/18 14:34 Consult to Physician [CONS] Routine Comment: Consulting Provider: DIANE HANDY Physician Instructions: Reason For Exam: persistant intermittent CP/neg stress test 08/24/18 Consult to Cardiac Rehabilitation [CONS] Routine Reason For Exam: post pci 08/25/18 Consult to Cardiac Rehabilitation [CONS] Routine Reason For Exam: post pci Primary care physician: CONSTRUCTION TRADES TEACHER Hospitalization Reason for admission: Chest pain Condition: Stable Pertinent studies: ct abdomen Stress test Heart Cath ECHO Procedures: s/p heart cath , first vessel PTCA Coronary angioplasty, stenting of greater than 99% stenosis of a fairly small caliber mid to distal circumflex, LV function 35-40% Cardiac cath : 1. multivessel coronary artery disease 2. patent left internal mammary artery graft to the LAD 3. patent saphenous vein graft to a ramus intermedius 4. patent saphenous vein graft to the distal right coronary artery 5. ejection fraction 35-40% s/p PCI of small caliber mid to distal circumflex stenosis that was not previously bypassed. s/p 2nd vessel PCI of the Ramus intermedius, intended for optimal perfusion of its larger, inferior subbranch Hospital course: 52 year old male with past medical history of CAD s/p CABG 2011 at [place], HTN, HLP, DM admitted with chest pain managed symptomaticall,evaluated by Cardiology,had ECHO, stress test as well as cardiac cath s/p PCI. Cardiology followed the patient ,meds optimised,today patientis comfortable, no new complaints,vitals stable, physical exam is unremarkable. Cleared by cardiology for dc and f/u upon discharge Discharge Diagnosis: s/p--Second vessel PCI ramus intermedius done today --Persistent chest pain; stress test during this admission is negative However patient has intermittent chest pain, cardiology following s/p heart cath , first vessel PTCA Coronary angioplasty, stenting of greater than 99% stenosis of a fairly small caliber mid to distal circumflex, LV function 35-40% --Atypical chest pain; present on admission, stress test negative --History of coronary artery disease s/p CABG; continue current cardiac medications , cardiology following --Systolic congestive heart failure; EF 40-45% Continue anti-failure medications --Type 2 diabetes mellitus; Accu-Chek sliding scale coverage and ADA diet and insulin as needed, oral hypoglycemics --Dyslipidemia; stable on statin cardiology cleared for dc and f/u upon discharge. Disposition: DC-01 TO HOME OR SELFCARE Time spent for discharge: 32 min Core Measure Documentation - Palliative Care Palliative Care/ Comfort Measures: Not Applicable - Core Measures Any of the following diagnoses?: none Exam - Constitutional Vitals: Temp Pulse Resp BP Pulse Ox 98.1 F 73 18 129/71 97 08/26/18 04:26 08/26/18 10:43 08/26/18 05:43 08/26/18 10:43 08/26/18 04:26 General appearance: Present: no acute distress, well-nourished - EENT Eyes: Present: PERRL, EOM intact - Neck Neck: Present: supple, normal ROM - Respiratory Respiratory effort: normal Respiratory: negative: rales, rhonchi, wheezing - Cardiovascular Rhythm: regular Heart Sounds: Present: S1 & S2 - Extremities Extremities: no ischemia, pulses intact - Abdominal General gastrointestinal: Present: soft, non-tender, non-distended, normal bowel sounds - Integumentary Integumentary: Present: clear, warm - Musculoskeletal Musculoskeletal: strength equal bilaterally - Psychiatric Psychiatric: appropriate mood/affect, cooperative - Neurologic Neurologic: CNII-XII intact, moves all extremities Plan Activity: advance as tolerated Diet: other (cardiac diet) Additional Instructions: If you have Chest pain or shortness of breath contact MD or go to ER Follow up with: PRIMARY MD LEONARD [Primary Care Provider] - 3-5 Days SUNNY MORTON MD [Staff Physician] - 08/31/18 Prescriptions: Ticagrelor [Brilinta] 90 mg PO BID #60 tablet
== END 2018-08-26 17:19 | disposition home or self-care (01) | DRG 246 ==
LOC: ED 23:22 → 4A 08-20 01:45
PROVIDERS: ADMIT Internal Medicine; ATTEND Internal Medicine
PROC: 027035Z Dilation of Coronary Artery, One Artery with Two Drug-eluting Intraluminal Devices, Percutaneous Approach (ICD-10-PCS; 2018-08-24)
PROC: 4A023N7 Measurement of Cardiac Sampling and Pressure, Left Heart, Percutaneous Approach (ICD-10-PCS; 2018-08-24)
PROC: B2111ZZ Fluoroscopy of Multiple Coronary Arteries using Low Osmolar Contrast (ICD-10-PCS; 2018-08-24)
PROC: B2181ZZ Fluoroscopy of Left Internal Mammary Bypass Graft using Low Osmolar Contrast (ICD-10-PCS; 2018-08-24)
PROC: B2131ZZ Fluoroscopy of Multiple Coronary Artery Bypass Grafts using Low Osmolar Contrast (ICD-10-PCS; 2018-08-24)
PROC: B2151ZZ Fluoroscopy of Left Heart using Low Osmolar Contrast (ICD-10-PCS; 2018-08-24)
PROC: 027035Z Dilation of Coronary Artery, One Artery with Two Drug-eluting Intraluminal Devices, Percutaneous Approach (ICD-10-PCS; principal; 2018-08-25)
DX: I25.110 Atherosclerotic heart disease of native coronary artery with unstable angina pectoris (principal); I50.23 Acute on chronic systolic (congestive) heart failure; I11.0 Hypertensive heart disease with heart failure; E78.5 Hyperlipidemia, unspecified; E11.9 Type 2 diabetes mellitus without complications; I25.82 Chronic total occlusion of coronary artery; E78.00 Pure hypercholesterolemia, unspecified; Z96.651 Presence of right artificial knee joint; I25.2 Old myocardial infarction; Z88.0 Allergy status to penicillin; Z82.49 Family history of ischemic heart disease and other diseases of the circulatory system; Z79.84 Long term (current) use of oral hypoglycemic drugs; Z95.1 Presence of aortocoronary bypass graft
CPT/HCPCS: 36415; 71045; 74176; 78452; 80048; 82550; 82553; 82962; 84484; 85025; 85347; 85610; 85730; 86850; 86900; 86901; 90686; 92928; 93005; 93010; 93017; 93306; 93459; 96374; 96375; 99291; G0378; A9270-GY; A9502; C1725; C1760; C1769; C1874; C1887; C1894; C9600; J1644; J1815; J1940; J2250; J2270; J2405; J2785; J3010; J3246; J7040; Q9967

== ENCOUNTER 2018-09-03 00:18 | Inpatient (IN) | payer MEDICARE ==
[2018-09-03] MEDS ORDERED: ASPIRIN PO ONE (01:15)
[2018-09-03 01:36] LABS: Basophils # (Auto) 0.1 K/mm3 (0.0-0.1); Basophils % (Auto) 1.1 % (0.0-1.8); Eosinophils # (Auto) 0.2 K/mm3 (0.0-0.4); Eosinophils % (Auto) 2.1 % (0.0-4.3); Hematocrit 35.7 % (35.5-45.6); Hemoglobin 12.3 gm/dl (11.8-15.2); Lymphocytes # (Auto) 2.9 K/mm3 (1.2-5.4); Lymphocytes % (Auto) 28.4 % (13.4-35.0); Mean Corpuscular HGB Conc 34 % (32-34); Mean Corpuscular Volume 94 fl (84-94); Monocytes # (Auto) 0.9 K/mm3 (0.0-0.8); Monocytes % (Auto) 8.9 % (0.0-7.3); Platelet Count 513 K/mm3 (140-440); Red Blood Count 3.82 M/mm3 (3.65-5.03); Red Cell Distribution Width 13.5 % (13.2-15.2)
[2018-09-03 01:58] LABS: BUN/Creatinine Ratio 20; Blood Urea Nitrogen 18 mg/dL (9-20); Calcium 10.1 mg/dL (8.4-10.2); Hemolysis Index 6
[2018-09-03] MEDS ORDERED: ZOFRAN IV ONE (02:40)
[2018-09-03] MEDS ORDERED: NITRO-BID 2% TP ONE (02:40)
[2018-09-03] MEDS ORDERED: SUBLIMAZE IV ONE (02:40)
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
[2018-09-03] MEDS ORDERED: ZOFRAN IV PRN (03:56)
[2018-09-03] MEDS ORDERED: SODIUM CHLORIDE FLUSH SYRINGE 10 ML IV PRN (03:56)
[2018-09-03] MEDS ORDERED: D50W (25GM) Syringe IV PRN (03:56)
[2018-09-03] MEDS ORDERED: MORPHINE IV PRN (03:56)
[2018-09-03] MEDS ORDERED: TYLENOL PO PRN (03:56)
--- NOTE | 2018-09-03 04:12 | XRay Report ---
FINAL REPORT EXAM: XR CHEST 1V AP HISTORY: chest pain TECHNIQUE: AP portable view(s) of the chest obtained. PRIORS: 08/19/2018 FINDINGS: No mediastinal shift. Cardiac silhouette is not enlarged. Overlying sternotomy wires, the most superi or of which is disrupted and appears unchanged from prior. No pneumothorax, effusion, or focal pulmon beck opacity identified. No acute skeletal findings. IMPRESSION: No acute pulmonary finding identified.
--- NOTE | 2018-09-03 04:52 | History and Physical Report ---
History of Present Illness Date of examination: 09/03/18 History of present illness: 52-year-old man with a history of hypertension, diabetes, hyperlipidemia, multivessel coronary artery disease course emergency room with complaints of chest pain that started yesterday. Pain is in the epigastric area which she described as a sharp pain, constant, intensity 7/10, no radiation. Some nausea, no shortness of breath, diaphoresis or palpitation, status post recent admission, status post stent Review of systems Constitutional: no weight loss, chills, fever Ears, eyes, nose, mouth and throat: no nasal congestion, no nasal discharge, no sinus pressure, no vision change, no red eye. Neck: No neck pain or rigidity. Cardiovascular: no palpitations, +chest pain Respiratory: no cough, shortness of breath Gastrointestinal: no hematochezia, abdominal pain Genitourinary : no frequency , no hematuria Musculoskeletal: no joint swelling or muscle ache Integumentary: no rash, no pruritis Neurological: no parathesias, no focal weakness Endocrine: no cold or heat intolerance, no polyuria or polydipsia Hematologic/Lymphatic: no easy bruising, no easy bleeding, no gland swelling Allergic/Immunologic: no urticaria, no angioedema. PAST MEDICAL HISTORY:hypertension, diabetes, hyperlipidemia, multivessel coronary artery disease PAST SURGICAL HISTORY: Right knee, tib-fib repair, exploratory laparoscopy SOCIAL HISTORY: Denies alcohol, drugs, tobacco FAMILY HISTORY: Hypertension Medications and Allergies Allergies Allergy/AdvReac Type Severity Reaction Status Date / Time Penicillins Allergy Unknown Verified 12/14/16 07:46 Home Medications Medication Instructions Recorded Confirmed Last Taken Type Aspirin [Aspir-Low] 81 mg PO DAILY 08/20/18 08/20/18 08/19/18 History AtorvaSTATin [Lipitor] 40 mg PO DAILY 08/20/18 08/20/18 Unknown History Cholecalciferol (Vitamin D3) 1,000 unit PO DAILY 08/20/18 08/20/18 Unknown History [Vitamin D3] Losartan/Hydrochlorothiazide 1 tab PO DAILY 08/20/18 08/20/18 Unknown History [Losartan-Hctz 100-25 mg Tab] Metformin HCl 1,000 mg PO BID 08/20/18 08/20/18 08/19/18 History Metoprolol Tartrate 100 mg PO BID 08/20/18 08/20/18 Unknown History Omeprazole 20 mg PO BID 08/20/18 08/20/18 Unknown History amLODIPine [Norvasc] 10 mg PO DAILY 08/20/18 08/20/18 Unknown History glipiZIDE [Glipizide] 10 mg PO BID 08/20/18 08/20/18 08/19/18 History Ticagrelor [Brilinta] 90 mg PO BID #60 tablet 08/26/18 Unknown Rx Active Meds: Active Medications Acetaminophen (Tylenol) 650 mg PO Q4H PRN PRN Reason: Pain MILD(1-3)/Fever >100.5/[place] Dextrose (D50w (25gm) Syringe) 50 ml IV PRN PRN PRN Reason: Hypoglycemia Enoxaparin Sodium (Lovenox) 40 mg SUB-Q QDAY [facility]KH[facility] Insulin Human Lispro (Humalog) 0 unit SUB-Q ACHS RUKHSANA; Protocol Morphine Sulfate (Morphine) 2 mg IV Q4H PRN PRN Reason: Pain, Moderate (4-6) Ondansetron HCl (Zofran) 4 mg IV Q8H PRN PRN Reason: Nausea And Vomiting Sodium Chloride (Sodium Chloride Flush Syringe 10 Ml) 10 ml IV BID RUKHSANA Sodium Chloride (Sodium Chloride Flush Syringe 10 Ml) 10 ml IV PRN PRN PRN Reason: LINE FLUSH Exam - Physical Exam Narrative exam: General Apperance: The patient lying in bed, breathing comfortable HEENT: Normocephalic, atraumatic. Pupils equally round and reactive to light, EOMI, no sclericterus or JVD or thyromegaly or nodule. , no carotid bruit, mucous membranes moist, no exudate or erythema Heart: S1-S2, regular is rhythm Lungs: Clear to auscultation bilaterally, breathing comfortable Abdomen: Positive bowel sounds, soft, nontender, nondistended, no organomegaly Extremities: No edema cyanosis clubbing Skin: no rash, nodule, warm and dry Neuro: cranial nerves 2-12 intact, speech is fluent, motor/sensory intact - Constitutional Vitals: Temp Pulse Resp BP Pulse Ox 98.8 F 74 13 124/74 99 09/03/18 01:12 09/03/18 03:31 09/03/18 03:31 09/03/18 03:31 09/03/18 03:31 Results - Labs CBC & Chem 7: 09/03/18 01:19 09/03/18 01:19 Labs: Abnormal lab results 09/03/18 09/03/18 Range/Units 01:19 01:19 Plt Count 513 H (140-440) K/mm3 [place] % (Auto) 8.9 H (0.0-7.3) % [place] # 0.9 H (0.0-0.8) K/mm3 Chloride 96.0 L (98-107) mmol/L Glucose 167 H (75-100) mg/dL - Imaging and Cardiology Chest x-ray: report reviewed Assessment and Plan Assessment Unstable angina Coronary artery hypertension diabetes hyperlipidemia Plan Admit to medicine Check cardiac enzymes, consult cardiology IV morphine and initiate insulin sliding-scale DVT prophylaxis
[2018-09-03] MEDS ORDERED: VITAMIN D3 PO SCH (10:00)
[2018-09-03] MEDS ORDERED: BRILINTA PO SCH (10:00)
[2018-09-03] MEDS ORDERED: LOPRESSOR PO SCH (10:00)
[2018-09-03] MEDS ORDERED: NORVASC PO SCH (10:00)
[2018-09-03] MEDS ORDERED: LOVENOX SUB-Q SCH (10:00)
[2018-09-03] MEDS ORDERED: HCTZ PO SCH (10:00)
[2018-09-03] MEDS ORDERED: PROTONIX PO SCH (10:00)
[2018-09-03] MEDS ORDERED: COZAAR PO SCH (10:00)
[2018-09-03] MEDS ORDERED: HALFPRIN EC PO SCH (10:00)
[2018-09-03] MEDS ORDERED: SODIUM CHLORIDE FLUSH SYRINGE 10 ML IV SCH (10:00)
[2018-09-03] MEDS ORDERED: PERCOCET 5/325 PO PRN (11:12)
[2018-09-03 12:53] VITALS: BP 142/74
--- NOTE | 2018-09-03 12:55 | Discharge Summary ---
Providers - Providers Date of Admission: 09/03/18 04:16 Date of discharge: 09/03/18 Attending physician: RAMEZ TANG MD 09/03/18 03:56 Consult to Physician [CONS] Routine Comment: Consulting Provider: SUNNY MORTON Physician Instructions: Reason For Exam: Primary care physician: [facility], Hospitalization Reason for admission: chest pain Condition: Fair Hospital course: 52-year-old man with a history of hypertension, diabetes, hyperlipidemia, multivessel coronary artery disease course emergency room with complaints of chest pain that started yesterday. Pain is in the epigastric area which she described as a sharp pain, constant, intensity 7/10, no radiation. Some nausea, no shortness of breath, diaphoresis or palpitation, status post recent admission, status post stent. Patient was admitted to the floor and cardiology evaluated the patient and recommended no further cardiac workup. It was atypical chest pain. Start him on 30 mg daily. Will follow-up with Dr. Morton in the office. Chest pain subsided. Patient was hemodynamically stable at the time of discharge. Appropriate medication scripts were given at the time of discharge. Patient's questions and concerns were addressed at the bedside. Disposition: DC-01 TO HOME OR SELFCARE Time spent for discharge: 34 minutes - Discharge Diagnoses (1) Chest pain Status: Acute (2) T wave inversion in EKG Status: Acute (3) Unstable angina Status: Acute Core Measure Documentation - Palliative Care Palliative Care/ Comfort Measures: Not Applicable - Core Measures Any of the following diagnoses?: none Exam - Physical Exam Narrative exam: Not in cardiopulmonary distress. The patient appeared well nourished and normally developed. Vital signs as documented. Head exam is unremarkable. No scleral icterus . Neck is without jugular venous distension, thyromegaly, or carotid bruits. Lungs are clear to auscultation. Cardiac exam reveals regular rate and Rhythm. First and second heart sounds normal. No murmurs, rubs or gallops. Abdominal exam reveals normal bowel sounds, no masses, no organomegaly and no aortic enlargement. Extremities are nonedematous and both femoral and pedal pulses are normal. STATION MASTER: Alert and oriented 3. No focal weakness. - Constitutional Vitals: Temp Pulse Resp BP Pulse Ox 97.6 F 75 18 119/72 97 09/03/18 08:21 09/03/18 08:21 09/03/18 08:21 09/03/18 08:21 09/03/18 09:57 Plan Activity: no restrictions Weight Bearing Status: Full Weight Bearing Diet: low salt, diabetic [facility] - 3-5 Days Prescriptions: ISOSORBIDE MONOnitrate [Imdur ER] 30 mg PO DAILY #30 tab.er.24h
[2018-09-03] MEDS: HumaLOG SUB-Q SCH ×2 (13:21→14:56)
--- NOTE | 2018-09-03 14:10 | Consultation ---
History of Present Illness Consult date: 09/03/18 Consult reason: chest pain History of present illness: Patient is a 52-year-old man with multivessel coronary artery disease. He un derwent an extensive invasive cardiac assessment within the past 2 weeks. He has patent bypass grafts to the LAD and right coronary arteries. Following this he underwent staged 2 vessel coronary angioplasty and stenting of the circumflex artery and the ramus intermedius artery both done just last week. He has been fully compliant with his dual oral antiplatelet therapy, aspirin and Brilinta. He is admitted now with recurrent chest pain. The chest pain is sharp, localized to the left lower rib cage, and not reminiscent of his symptoms prior to his recent two-vessel intervention. He states that he has more energy than previous, and no longer fatigued and otherwise looks and feels well. ECG shows normal sinus rhythm left ventricular hypertrophy, nonspecific anterior T-wave abnormalities, otherwise no acute ST or T-wave changes. Specifically, there is no ECG evidence of acute posterior ischemia or infarction. Serial cardiac troponin levels are normal. Past History Past Medical History: CAD Past Surgical History: CABG, PTCA Medications and Allergies Allergies Allergy/AdvReac Type Severity Reaction Status Date / Time Penicillins Allergy Unknown Verified 12/14/16 07:46 Home Medications Medication Instructions Recorded Confirmed Last Taken Type Aspirin [Aspir-Low] 81 mg PO DAILY 08/20/18 08/20/18 08/19/18 History AtorvaSTATin [Lipitor] 40 mg PO DAILY 08/20/18 08/20/18 Unknown History Cholecalciferol (Vitamin D3) 1,000 unit PO DAILY 08/20/18 08/20/18 Unknown History [Vitamin D3] Losartan/Hydrochlorothiazide 1 tab PO DAILY 08/20/18 08/20/18 Unknown History [Losartan-Hctz 100-25 mg Tab] Metformin HCl 1,000 mg PO BID 08/20/18 08/20/18 08/19/18 History Metoprolol Tartrate 100 mg PO BID 08/20/18 08/20/18 Unknown History Omeprazole 20 mg PO BID 08/20/18 08/20/18 Unknown History amLODIPine [Norvasc] 10 mg PO DAILY 08/20/18 08/20/18 Unknown History glipiZIDE [Glipizide] 10 mg PO BID 08/20/18 08/20/18 08/19/18 History Ticagrelor [Brilinta] 90 mg PO BID #60 tablet 08/26/18 Unknown Rx ISOSORBIDE MONOnitrate [Imdur ER] 30 mg PO DAILY #30 tab.er.24h 09/03/18 Unknown Rx Active Meds: Active Medications Acetaminophen (Tylenol) 650 mg PO Q4H PRN PRN Reason: Pain MILD(1-3)/Fever >100.5/[place] Last Admin: 09/03/18 10:10 Dose: 650 mg Documented by: Amlodipine Besylate (Norvasc) 10 mg PO DAILY [facility] Last Admin: 09/03/18 10:11 Dose: 10 mg Documented by: Aspirin (Halfprin Ec) 81 mg PO DAILY [facility] Last Admin: 09/03/18 10:10 Dose: 81 mg Documented by: Atorvastatin Calcium (Lipitor) 40 mg PO DAILY [facility] Last Admin: 09/03/18 10:10 Dose: 40 mg Documented by: Cholecalciferol (Vitamin D3) 1,000 unit PO DAILY [facility] Last Admin: 09/03/18 10:11 Dose: 1,000 unit Documented by: Dextrose (D50w (25gm) Syringe) 50 ml IV PRN PRN PRN Reason: Hypoglycemia Enoxaparin Sodium (Lovenox) 40 mg SUB-Q QDAY [facility] Last Admin: 09/03/18 10:11 Dose: 40 mg Documented by: Hydrochlorothiazide (Hctz) 25 mg PO QDAY [facility] Last Admin: 09/03/18 10:10 Dose: 25 mg Documented by: Insulin Human Lispro (Humalog) 0 unit SUB-Q [facility]; Protocol Last Admin: 09/03/18 13:21 Dose: Not Given Documented by: Losartan Potassium (Cozaar) 100 mg PO DAILY [facility] Metoprolol Tartrate (Lopressor) 100 mg PO BID [facility] Last Admin: 09/03/18 10:11 Dose: 100 mg Documented by: Ondansetron HCl (Zofran) 4 mg IV Q8H PRN PRN Reason: Nausea And Vomiting Oxycodone/Acetaminophen (Percocet 5/325) 1 tab PO Q6H PRN PRN Reason: Pain, Moderate (4-6) Last Admin: 09/03/18 12:09 Dose: 1 tab Documented by: Pantoprazole Sodium (Protonix) 20 mg PO BID [facility] Last Admin: 09/03/18 10:11 Dose: 20 mg Documented by: Sodium Chloride (Sodium Chloride Flush Syringe 10 Ml) 10 ml IV BID [facility] Sodium Chloride (Sodium Chloride Flush Syringe 10 Ml) 10 ml IV PRN PRN PRN Reason: LINE FLUSH Ticagrelor (Brilinta) 90 mg PO BID [facility] Last Admin: 09/03/18 10:10 Dose: 90 mg Documented by: Review of Systems Cardiovascular: chest pain, no orthopnea, no palpitations, no rapid/irregular heart beat, no edema, no syncope, no lightheadedness, no shortness of breath Physical Examination Vital Signs Temp Pulse Resp BP Pulse Ox 98.8 F 87 22 132/89 100 09/03/18 01:12 09/03/18 01:12 09/03/18 01:12 09/03/18 01:12 09/03/18 01:12 General appearance: no acute distress HEENT: Positive: PERRL Neck: Positive: neck supple Cardiac: Positive: Reg Rate and Rhythm Lungs: Positive: Decreased Breath Sounds Neuro: Positive: Grossly Intact Abdomen: Positive: Soft Male genitourinary: Positive: deferred Skin: Positive: Clear Extremities: Absent: edema Results 09/03/18 01:19 09/03/18 01:19 CBC 09/03/18 Range/Units 01:19 WBC 10.3 (4.5-11.0) K/mm3 RBC 3.82 (3.65-5.03) M/mm3 Hgb 12.3 (11.8-15.2) gm/dl Hct 35.7 (35.5-45.6) % Plt Count 513 H (140-440) K/mm3 Lymph # 2.9 (1.2-5.4) K/mm3 [place] # 0.9 H (0.0-0.8) K/mm3 Eos # 0.2 (0.0-0.4) K/mm3 Baso # 0.1 (0.0-0.1) K/mm3 Comprehensive Metabolic Panel 09/03/18 Range/Units 01:19 Sodium 137 (137-145) mmol/L Potassium 4.0 (3.6-5.0) mmol/L Chloride 96.0 L (98-107) mmol/L Carbon Dioxide 26 (22-30) mmol/L BUN 18 (9-20) mg/dL Creatinine 0.9 (0.8-1.5) mg/dL Glucose 167 H (75-100) mg/dL Calcium 10.1 (8.4-10.2) mg/dL EKG interpretations - Telemetry EKG Rhythm: Sinus Rhythm Assessment and Plan - Patient Problems (1) Chest pain Current Visit: Yes Status: Acute Plan to address problem: Patient's chest pain is atypical, not reminiscent of his previous angina. There is no ECG, clinical or laboratory evidence of subacute stent thrombosis. No further cardiac intervention is warranted, patient can be discharged home on his medical therapy. We will add Imdur 30-60 mg daily to his regimen for angina of small vessel atherosclerosis.
--- NOTE | 2018-09-03 14:13 | Event Note ---
Date: 09/03/18 Patient's chest pain is atypical, not reminiscent of his previous angina. There is no ECG, clinical or laboratory evidence of subacute stent thrombosis. No further cardiac intervention is warranted, patient can be discharged home on his medical therapy. We will add Imdur 30-60 mg daily to his regimen for angina of small vessel atherosclerosis.
== END 2018-09-03 16:54 | disposition home or self-care (01) | DRG 313 ==
LOC: ED 00:18 → 4A 04:16
PROVIDERS: ADMIT Internal Medicine; ATTEND Internal Medicine
DX: R07.89 Other chest pain (principal); I25.110 Atherosclerotic heart disease of native coronary artery with unstable angina pectoris; E78.00 Pure hypercholesterolemia, unspecified; I25.10 Atherosclerotic heart disease of native coronary artery without angina pectoris; I10 Essential (primary) hypertension; Z96.651 Presence of right artificial knee joint; I25.2 Old myocardial infarction; Z95.5 Presence of coronary angioplasty implant and graft; Z87.891 Personal history of nicotine dependence; Z79.82 Long term (current) use of aspirin; Z79.899 Other long term (current) drug therapy; Z79.84 Long term (current) use of oral hypoglycemic drugs
CPT/HCPCS: 36415; 71045; 80048; 82962; 84484; 85025; 93005; 93010; 96374; 96375; G0378; A9270-GY; J1650; J1815; J2405; J3010